=== PATIENT | female | born 1950 | race Caucasian/White ===

== ENCOUNTER → 2018-03-27 13:25 | Outpatient (CLI) | payer MEDICARE ==
[2016-02-01 13:01] VITALS: BMI 34.6
[~2018-03-27 13:25] MED LIST: BROVANA15 MCG/2 M INH; FLUTICASONE PRO16 GM NASAL; IPRAT-ALBUT 0.5-3 ML UPD; MEDROL DOSE PACK4 MG PO; MUCINEX DM ER1 EAC1 PO; NICODERM C1 PATCH .1 TRANSDERM; PAXIL10 MG PO; PAXIL20 MG PO; PROTONIX40 MG PO; PULMICORT0.5 MG/21 UPD; SINGULAIR10 MG PO; TENORMIN25 MG PO
[2018-03-27 15:55] LABS: BASOPHILS 0.3 % (0-2); EOSINOPHILS 0.4 % (0-7); HEMATOCRIT 53.6 % (36.0-48.0); HEMOGLOBIN 17.9 g/dL (12-16); IMMATURE GRANULOCYTES 0.7 % (0-5); MCHC 33.4 g/dL (31.0-37.0); MCV 92.9 fL (80.0-100.0); MEAN PLATELET VOLUME 11.5 fL (7.4-10.4); MONOCYTES 4.9 % (2-11); NEUTROPHILS 81.7 % (40-80); RBC 5.77 10x6/uL (4.00-5.40); RDW 15.8 % (11.5-14.5); WBC 15.2 10x3/uL (4.8-10.8)
[2018-03-27 16:06] LABS: PLATELET COUNT 261 10x3/uL (130-400)
[2018-03-27 17:17] LABS: ERYTHROCYTE SEDIMENTATION RATE 8 mm/hr (0-30)
== END | disposition home or self-care (01) ==
LOC: D.LABREF 13:25
PROVIDERS: Orthopaedic Surgery
DX: M25.562 Pain in left knee (principal)

== ENCOUNTER → 2018-04-08 08:58 | Outpatient (CLI) | payer MEDICARE ==
[2016-02-01 13:01] VITALS: BMI 34.6
== END | disposition home or self-care (01) ==
LOC: D.NM 08:58
DX: M25.562 Pain in left knee (principal)

== ENCOUNTER → 2019-01-22 13:35 | Outpatient (CLI) | payer MEDICARE ==
[2016-02-01 13:01] VITALS: BMI 34.6
== END | disposition home or self-care (01) ==
LOC: D.US 12-17 09:00
PROVIDERS: ATTEND Internal Medicine
DX: N18.3 Chronic kidney disease, stage 3 (moderate) (principal)

== ENCOUNTER 2020-08-01 16:20 | Inpatient (IN) | payer OTHER, MEDICARE ==
[~2020-08-01] VITALS: Ht 160 cm; Wt 78.9 kg
[2020-08-01 16:50] LABS: BASOPHILS 0.2 % (0-2); EOSINOPHILS 2.3 % (0-7); HEMATOCRIT 51.5 % (36.0-48.0); HEMOGLOBIN 16.6 g/dL (12-16); IMMATURE GRANULOCYTES 0.3 % (0-5); MCH 29.2 pg (26.0-34.0); MCHC 32.2 g/dL (31.0-37.0); MCV 90.5 fL (80.0-100.0); MONOCYTES 11.2 % (2-11); PLATELET COUNT 189 10x3/uL (130-400); RBC 5.69 10x6/uL (4.00-5.40); RDW 15.9 % (11.5-14.5); WBC 10.3 10x3/uL (4.8-10.8)
[2020-08-01 17:04] LABS: CALC OSMOLALITY 284 mosm/kg (275-300); CALCIUM 8.9 mg/dL (8.5-10.1); CARBON DIOXIDE 26.5 mmol/L (21.0-32.0); CHLORIDE - SERUM 104 mmol/L (98-107); CREATININE - SERUM 1.5 mg/dL (0.6-1.3); GLUCOSE 93 mg/dL (74-106); POTASSIUM - SERUM 4.2 mmol/L (3.5-5.1); SODIUM 141 mmol/L (136-145); UREA NITROGEN 25 mg/dL (7-18); eGFR NON AFRICAN AMERICAN 36 mL/min (90-120)
[2020-08-01 17:25] LABS: ALBUMIN 2.7 g/dL (3.4-5.0); ALKALINE PHOSPHATASE 100 U/L (30-120); ALT (SGPT) 17 U/L (10-68); AMYLASE - SERUM 134 U/L (25-115); BILIRUBIN - TOTAL 0.79 mg/dL (0.2-1.3); LIPASE 818 U/L (73-393); PROTEIN - SERUM 6.7 g/dL (6.4-8.2)
[2020-08-01 17:26] LABS: TROPONIN-I < 0.017 ng/mL (0.000-0.060)
[2020-08-01 18:33] LABS: BILIRUBIN NEGATIVE (NEGATIVE); KETONE SMALL mg/dL (NEGATIVE); NITRITE POSITIVE (NEGATIVE); UROBILINOGEN NORMAL mg/dL (< 2)
[2020-08-01 18:40] LABS: EPITHELIAL CELLS 0-5 /hpf (0-5); WHITE CELLS - URINE 25-50 HPF (0-4)
[2020-08-01 18:41] LABS: BACTERIA MANY HPF (NONE SEEN)
--- NOTE | 2020-08-01 19:15 | NUR ---
PT ALERT AND TALKING TO FAMILY. DR. ZAMAN IN TO SEE PATIENT.
--- NOTE | 2020-08-01 19:52 | NUR ---
MORPHINE AND ZOFRAN GIVEN FOR PAIN "ALL OVER".
--- NOTE | 2020-08-01 19:52 | NUR ---
COVID SWAB COLLECTED FOR ROUTINE ADMISSION. WALKED TO LAB.
--- NOTE | 2020-08-01 21:10 | NUR ---
PT RESTING. AWAITING ROOM ASSIGNMENT. FEDERICO SUH ELECTRICIAN UNDERGROUND MADE AWARE OF NEED FOR SINGUAIR PO.
[2020-08-02 03:54] VITALS: BP 119/64
[2020-08-02 05:49] LABS: BASOPHILS 0.1 % (0-2); EOSINOPHILS 3.5 % (0-7); HEMATOCRIT 48.7 % (36.0-48.0); HEMOGLOBIN 15.3 g/dL (12-16); IMMATURE GRANULOCYTES 0.3 % (0-5); LYMPHOCYTES 21.7 % (15-50); MCH 28.7 pg (26.0-34.0); MCHC 31.4 g/dL (31.0-37.0); MCV 91.4 fL (80.0-100.0); MEAN PLATELET VOLUME 11.5 fL (7.4-10.4); MONOCYTES 12.5 % (2-11); NEUTROPHILS 61.9 % (40-80); PLATELET COUNT 191 10x3/uL (130-400); RBC 5.33 10x6/uL (4.00-5.40); RDW 16.1 % (11.5-14.5); WBC 8.8 10x3/uL (4.8-10.8)
[2020-08-02 06:09] LABS: ALBUMIN 2.5 g/dL (3.4-5.0); ANION GAP 11.7 mmol/L (8-16); BILIRUBIN - TOTAL 0.65 mg/dL (0.2-1.3); CALCIUM 8.6 mg/dL (8.5-10.1); CARBON DIOXIDE 29.1 mmol/L (21.0-32.0); CREATININE - SERUM 1.3 mg/dL (0.6-1.3); POTASSIUM - SERUM 3.8 mmol/L (3.5-5.1); PROTEIN - SERUM 6.9 g/dL (6.4-8.2)
[2020-08-02 06:18] LABS: APTT 28.7 SECONDS (22.8-39.4); INR 1.18 (0.85-1.17); PROTIME 14.9 SECONDS (11.6-15.0)
[2020-08-02 07:17] VITALS: BP 130/62
[2020-08-02 07:44] VITALS: BP 154/73
[2020-08-02 11:40] VITALS: BP 108/60
[2020-08-02 13:01] VITALS: Ht 160 cm; Wt 78.9 kg
[2020-08-02 17:10] VITALS: BP 142/89
--- NOTE | 2020-08-02 19:30 | NUR ---
RECEIVED BEDSIDE REPORT. PATIENT IS ALERT AND ORIENTED, RESTING COMFORTABLY IN BED. RESPIRATIONS ARE EVEN AND UNLABORED. NO S/S OF DISTRESS. NO C/O PAIN. CALL LIGHT WITHIN REACH. WILL CPOC.
[2020-08-02 22:45] VITALS: BP 155/80
[2020-08-03 02:12] VITALS: BP 131/56
[2020-08-03 06:14] VITALS: BP 126/82
[2020-08-03 06:34] LABS: BASOPHILS 0.3 % (0-2); EOSINOPHILS 4.9 % (0-7); HEMATOCRIT 45.9 % (36.0-48.0); HEMOGLOBIN 14.3 g/dL (12-16); IMMATURE GRANULOCYTES 0.3 % (0-5); LYMPHOCYTES 21.1 % (15-50); MCH 28.7 pg (26.0-34.0); MCHC 31.2 g/dL (31.0-37.0); MEAN PLATELET VOLUME 10.9 fL (7.4-10.4); MONOCYTES 15.3 % (2-11); NEUTROPHILS 58.1 % (40-80); PLATELET COUNT 169 10x3/uL (130-400); RBC 4.99 10x6/uL (4.00-5.40); RDW 15.9 % (11.5-14.5); WBC 6.7 10x3/uL (4.8-10.8)
[2020-08-03 06:52] LABS: ALBUMIN 2.3 g/dL (3.4-5.0); BILIRUBIN - TOTAL 0.58 mg/dL (0.2-1.3); CALCIUM 8.6 mg/dL (8.5-10.1); CARBON DIOXIDE 26.2 mmol/L (21.0-32.0); CHOL - HDL RATIO 3.8 ratio (2.3-4.1); CREATININE - SERUM 1.2 mg/dL (0.6-1.3); LDL-HDL RATIO 1.8 ratio (1.5-3.5); POTASSIUM - SERUM 4.2 mmol/L (3.5-5.1); PROTEIN - SERUM 6.4 g/dL (6.4-8.2)
--- NOTE | 2020-08-03 07:20 | NUR ---
RECIEVE REPORT. ALERT AND ORIENTED X4. IV FLUIDS INFUSING ORDERED. NO SIGNS OF DISTRESS. CONTINUE PLAN OF CARE AND SAFETY PRECAUTIONS.
[2020-08-03 11:00] VITALS: BP 158/76
[2020-08-03 15:00] VITALS: BP 112/46; BP 152/75
--- NOTE | 2020-08-03 15:01 | NUR ---
ALERT AND ORIENTED X4. LT HAND IV INFILTRATED. DC LT HAND IV TIP INTACT. RESITE IV TO RT FA 20g SUCCESSFUL X1 ATTEMPT. CONTINUE FLUIDS AND ZOFRAN ORDERED. DENIES ANY NEEDS. CONTINUE PLAN OF CARE AND SAFETY PRECAUTIONS.
--- NOTE | 2020-08-03 19:11 | NUR ---
RECEIVED BEDSIDE REPORT. ROUNDING COMPLETE. PATIENT IS ALERT AND ORIENTED, RESTING COMFORTABLY IN BED. RESPIRATIONS ARE EVEN AND UNLABORED. NO S/S OF DISTRESS. NO C/O PAIN. CALL LIGHT WITHIN REACH. WILL CPOC.
[2020-08-03 19:58] VITALS: BP 162/78
[2020-08-04] VITALS: BP 132/76
[2020-08-04 04:00] VITALS: BP 161/78
[2020-08-04 06:07] LABS: BASOPHILS 0.3 % (0-2); EOSINOPHILS 4.2 % (0-7); HEMATOCRIT 45.7 % (36.0-48.0); HEMOGLOBIN 14.4 g/dL (12-16); IMMATURE GRANULOCYTES 0.3 % (0-5); LYMPHOCYTES 19.3 % (15-50); MCH 28.6 pg (26.0-34.0); MCHC 31.5 g/dL (31.0-37.0); MCV 90.7 fL (80.0-100.0); MEAN PLATELET VOLUME 10.9 fL (7.4-10.4); MONOCYTES 14.5 % (2-11); NEUTROPHILS 61.4 % (40-80); PLATELET COUNT 172 10x3/uL (130-400); RBC 5.04 10x6/uL (4.00-5.40); RDW 15.5 % (11.5-14.5); WBC 6.4 10x3/uL (4.8-10.8)
[2020-08-04 06:46] LABS: ALBUMIN 2.3 g/dL (3.4-5.0); ANION GAP 15.3 mmol/L (8-16); BILIRUBIN - TOTAL 0.41 mg/dL (0.2-1.3); CALCIUM 8.4 mg/dL (8.5-10.1); CARBON DIOXIDE 23.4 mmol/L (21.0-32.0); POTASSIUM - SERUM 3.7 mmol/L (3.5-5.1); PROTEIN - SERUM 5.9 g/dL (6.4-8.2)
--- NOTE | 2020-08-04 07:33 | NUR ---
RECIEVE REPORT. ALERT AND ORIENTED X4. LAYING IN BED. IV INFUSING ORDERED. DENIES ANY NEEDS. CONTINUE PLAN OF CARE AND SAFETY PRECAUTIONS.
[2020-08-04 10:52] VITALS: BP 148/82
--- NOTE | 2020-08-04 12:37 | NUR ---
Nutrition Follow-up: Pt unavailable at time of visit this AM. Chart reviewed. Noted pt receiving Zofran drip & Phenergan added. Diet: Clear Liquid Wt: 174# (08/02) Labs noted: Glu 66, Ca 8.4, Alb 2.3, Amylase 60, Lipase 274 Meds noted: Florajen, Zofran, Phenergan, Protonix, NS @ 125 -Rec ADAT as medically feasible; if unable to advance past clears within 24-48 hrs, rec consider nutrition support. -Monitor wt. -RD following.
[2020-08-04 14:54] VITALS: BP 149/80
--- NOTE | 2020-08-04 17:05 | NUR ---
ALERT AND ORIENTED X4. RESTING IN BED. DC ZOFRAN DRIP ORDERED. DENIES ANY NEEDS. CONTINUE PLAN OF CARE AND SAFETY PRECAUTIONS.
--- NOTE | 2020-08-04 19:24 | NUR ---
RECEIVED BEDSIDE REPORT. ROUNDING COMPLETE. PATIENT IS ALERT AND ORIENTED, RESTING COMFORTABLY IN BED. RESPIRATIONS ARE EVEN AND UNLABORED. NO S/S OF DISTRESS. NO C/O PAIN. PATIENT INCONTINENT OF BOWEL AND BLADDER. PATIENT CLEANED AND CHANGED. PATIENT REQUESTED BED LARSEN. NEEDS MET. CALL LIGHT WITHIN REACH. WILL CPOC.
[2020-08-04 20:00] VITALS: BP 137/71
[2020-08-05 04:00] VITALS: BP 147/75
[2020-08-05 06:04] LABS: BASOPHILS 0.3 % (0-2); EOSINOPHILS 3.5 % (0-7); HEMATOCRIT 44.5 % (36.0-48.0); HEMOGLOBIN 14.4 g/dL (12-16); IMMATURE GRANULOCYTES 0.2 % (0-5); LYMPHOCYTES 18.2 % (15-50); MCHC 32.4 g/dL (31.0-37.0); MCV 89.5 fL (80.0-100.0); MEAN PLATELET VOLUME 10.8 fL (7.4-10.4); MONOCYTES 15.6 % (2-11); NEUTROPHILS 62.2 % (40-80); PLATELET COUNT 163 10x3/uL (130-400); RBC 4.97 10x6/uL (4.00-5.40); RDW 15.3 % (11.5-14.5); WBC 6.4 10x3/uL (4.8-10.8)
[2020-08-05 06:24] LABS: ALBUMIN 2.3 g/dL (3.4-5.0); ANION GAP 9.7 mmol/L (8-16); BILIRUBIN - TOTAL 0.52 mg/dL (0.2-1.3); CALCIUM 8.5 mg/dL (8.5-10.1); CARBON DIOXIDE 27.5 mmol/L (21.0-32.0); CREATININE - SERUM 0.9 mg/dL (0.6-1.3); POTASSIUM - SERUM 3.2 mmol/L (3.5-5.1); PROTEIN - SERUM 6.4 g/dL (6.4-8.2)
[2020-08-05 08:10] VITALS: BP 144/69
--- NOTE | 2020-08-05 09:23 | MORECARE ---
CASE MANAGEMENT DISCHARGE SUMMARY PATIENT: ROBB CR UNIT: [id number] ADM DATE: 08/01/20 AGE: 70 : 50 SEX: F ROOM/BED: D.2110 AUTHOR: ANGIE MANZO PHYSICIAN: REFERRING PHYSICIAN: GUME ZAMAN MD DATE OF SERVICE: 08/05/20 Discharge Plan Patient Name: ROBB CR Facility: [facility]:[place] : 1950 Planned Disposition: Home Anticipated Discharge Date: Discharge Date: Expected LOS: Initial Reviewer: [email or web address] Initial Review Date: 08/05/2020 Generated: 08/05/20 10:23 am DCPIA - Discharge Planning Initial Assessment Updated by [email or web address]: Lorrie Herrera on 08/05/20 9:19 am * Is the patient Alert and Oriented? Yes * PCP Danisha Parker APN for Dr. Griffiths in [place] * Pharmacy [facility] * Preadmission Environment Home with Family * ADLs Partial Dependent * Partial ADLs (Assistance needed) Ambulation Bathing Dressing Medication Management Toileting Transfers * Equipment Bedside Commode Nebulizer Wheelchair * List name and contact numbers for known caregivers / representatives who currently or will assist patient after discharge: Farhan Aguila - spouse - unknown number Makisha - DTR - [phone] * Verbal permission to speak to the caregivers and representatives has been obtained from the patient. Yes * Community resources currently utilized Private Duty Care * Please name any agencies selected above. [facility] personal care in [place] * Additional services required to return to the preadmission environment? No * Can the patient safely return to the preadmission environment? Yes * Has this patient been hospitalized within the prior 30 days at any hospital? No Patient Name: ROBB CR Page [id number] at 0923 All edits/amendments must be made on the electronic document DICTATION DATE: 08/05/20922 PSYCH THERAPIST: JACKIE 08/05/20922 RPT#: [id number] DC DATE: STATUS: ADM IN [place] [address] [place] [address] END OF REPORT
--- NOTE | 2020-08-05 09:32 | MORECARE ---
CASE MANAGEMENT DISCHARGE SUMMARY PATIENT: ROBB CR UNIT: [id number] ADM DATE: 08/01/20 AGE: 70 : 50 SEX: F ROOM/BED: D.9053 AUTHOR: ANGIE MANZO PHYSICIAN: REFERRING PHYSICIAN: GUME ZAMAN MD DATE OF SERVICE: 08/05/20 Discharge Plan Patient Name: ROBB CR Facility: [facility]:[place] : 1950 Planned Disposition: Home Anticipated Discharge Date: Discharge Date: Expected LOS: Initial Reviewer: [id number] Initial Review Date: 08/05/2020 Generated: 08/05/20 10:31 am Comments DCP- Discharge Planning Updated by [email or web address]: Lorrie Herrera on 08/05/20 8:[address] Patient Name: ROBB CR Admission Status: ER Accout number: [id number] Admission Date: 08-01-2020 : 1950 Admission Diagnosis:URINARY TRACT INFECTION, SITE NOT SPECIFIED Attending: GUME ZAMAN Current LOS: 4 Anticipated DC Date: Planned Disposition: Home Primary Insurance: [employer] DC PLAN: Home with spouse/Daughter to transport home ANTICIPATED DC NEEDS: No needs. She has personal care with [facility] in [place] CM met with patient to complete initial dc planning assessment. CM educated patient on the CM role and verbal consent given by patient to complete assessment. CM verified patient's address, phone number, and emergency contact phone numbers. Patient lives at home with her spouse. At discharge patient plans to return and feels this is a safe discharge. CM discussed availability of home health, rehab services, and medical equipment. Patient denied known discharge needs at this time. Transportation provider at discharge will be her daughter, Neal. States she has personal care from [facility] through [facility] in [place]. Neal is with her Mon - Thurs. for 6 hours a day. She assists with bathing, dressing, medication management. States daughter picks up her medications from pharmacy. States she is wheelchair bound and has just purchased a transfer wheelchair from [employer]. DME company is [email or web address]. CM will continue to follow and will assist as needed with dc plans/needs. Breaking Machine Operator: Lorrie Herrera DCPIA - Discharge Planning Initial Assessment Updated by [email or web address]: Lorrie eHrrera on 08/05/20 9:19 am * Is the patient Alert and Oriented? Yes * PCP Danisha Parker APN for Dr. Griffiths in [place] * [facility]acy [facility] [address] * Preadmission Environment Home with Family * ADLs Partial Dependent * Partial ADLs (Assistance needed) Ambulation Bathing Dressing Medication Management Toileting Transfers * Equipment Bedside Commode Nebulizer Wheelchair * List name and contact numbers for known caregivers / representatives who currently or will assist patient after discharge: Farhan Aguila - spouse - unknown number Makisha - DTR - [phone] * Verbal permission to speak to the caregivers and representatives has been obtained from the patient. Yes * Community resources currently utilized Private Duty Care * Please name any agencies selected above. [facility] personal care in [place] * Additional services required to return to the preadmission environment? No * Can the patient safely return to the preadmission environment? Yes * Has this patient been hospitalized within the prior 30 days at any hospital? No Coverage Notice Reviewer: [id number] - Lorrie Herrera Notice Issued Date-Time: 08/05/2020 9:26 Notice Type: IM Discharge Notice Notice Delivered To: Patient Relationship to Patient: Self Senior Office Assistant Name: Delivery Method: HAND - Hand Delivered Eboni Days: Prior Verbal Notification: Recipient Understood Notice: Yes Recipient Signature: Yes Med Rec Note Co-signed by Attending: Coverage Notice Comment: IMM explained, signed, given, copy placed in MR Last DP export: 08/05/20 8:23 a Patient Name: ROBB CR Page 22600 at 0932 All edits/amendments must be made on the electronic document DICTATION DATE: 08/05/20931 ASPHALT DAUBER: JACKIE 08/05/20931 RPT#: [id number] DC DATE: STATUS: ADM IN [facility] [address] [place] [address] END OF REPORT
[2020-08-05 11:44] VITALS: BP 112/62; BP 144/69
[2020-08-05 15:58] VITALS: BP 131/65
[2020-08-05 20:21] VITALS: BP 139/64
[2020-08-06] VITALS: BP 133/57
[2020-08-06 05:44] LABS: BASOPHILS 0.4 % (0-2); HEMATOCRIT 45.3 % (36.0-48.0); HEMOGLOBIN 14.4 g/dL (12-16); IMMATURE GRANULOCYTES 0.2 % (0-5); LYMPHOCYTES 26.6 % (15-50); MCH 28.6 pg (26.0-34.0); MCHC 31.8 g/dL (31.0-37.0); MCV 90.1 fL (80.0-100.0); MEAN PLATELET VOLUME 10.7 fL (7.4-10.4); MONOCYTES 15.7 % (2-11); NEUTROPHILS 52.1 % (40-80); PLATELET COUNT 173 10x3/uL (130-400); RBC 5.03 10x6/uL (4.00-5.40); RDW 15.3 % (11.5-14.5); WBC 5.2 10x3/uL (4.8-10.8)
[2020-08-06 06:10] LABS: ALBUMIN 2.3 g/dL (3.4-5.0); ANION GAP 10.9 mmol/L (8-16); BILIRUBIN - TOTAL 0.37 mg/dL (0.2-1.3); CALCIUM 8.3 mg/dL (8.5-10.1); CARBON DIOXIDE 29.3 mmol/L (21.0-32.0); POTASSIUM - SERUM 3.2 mmol/L (3.5-5.1); PROTEIN - SERUM 5.6 g/dL (6.4-8.2)
[2020-08-06 09:52] VITALS: BP 140/74
--- NOTE | 2020-08-06 13:27 | NUR ---
Nutrition Follow-up: NPO for GES today. Noted pt with N/V/abd pain. Ate 50-75% of meals yesterday per chart. Wt: 174# (08/02) Last BM: 08/05 per chart Labs noted: K+ 3.2, Ca 8.3, Alb 2.3 Meds noted: Zofran, Florajen, Protonix, NS @ 125 -RD following.
[2020-08-06 14:28] VITALS: BP 149/76
[2020-08-06 15:12] LABS: IGG SUBCLASS 1 352 mg/dL (248-810); IGG SUBCLASS 2 215 mg/dL (130-555); IGG SUBCLASS 3 27 mg/dL (15-102); IGG SUBCLASS 4 61 mg/dL (2-96); IGGS - IGG SERUM 679 mg/dL (586-1602)
--- NOTE | 2020-08-06 18:06 | NUR ---
22 GAUGE RIGHT HAND 1 STICK
[2020-08-06 21:41] VITALS: BP 127/58
[2020-08-07 04:40] VITALS: BP 141/54
--- NOTE | 2020-08-07 07:35 | NUR ---
PT RESTING COMFORTABLY, EYES CLOSED. BREATHS EVEN/REGULAR AND UNLABORED. NO SIGNS OR SYMPTOMS OF ACUTE DISTRESS NOTED AT THIS TIME. WILL CNT. TO MONITOR . CL IN REACH, SRX2.
[2020-08-07 08:00] VITALS: BP 136/66
[2020-08-07 10:30] VITALS: BP 140/74
[2020-08-07 15:00] VITALS: BP 132/70
--- NOTE | 2020-08-07 15:56 | NUR ---
I have reviewed this patient and I concur with the Shift Assessment completed by the Licensed Practical Nurse today this shift.
[2020-08-07 21:42] VITALS: BP 137/63
[2020-08-08 01:49] VITALS: BP 156/81
[2020-08-08 05:39] VITALS: BP 169/73
[2020-08-08 08:18] VITALS: BP 149/70
--- NOTE | 2020-08-08 10:39 | NUR ---
PT ALERT AND ORIENTED, LYING INBED. AT BEDSIDE. PT REQUESTING TO GET HER DISCHARGE PAPERS ROSA M SO SHE CAN HAVE A RIDE HOME. WILL INFORM MD. CHANGED PT, SHE IS CURRENTLY CLEAN AND DRY. WILL CNT. TO [place]. CL INR EACH, SRX2.
[2020-08-08] MEDS ORDERED: REGLAN10 MG PO (12:58)
--- NOTE | 2020-08-08 13:15 | MORECARE ---
CASE MANAGEMENT DISCHARGE SUMMARY PATIENT: ROBB CR UNIT: [id number] ADM DATE: 08/01/20 AGE: 70 : 50 SEX: F ROOM/BED: D.9809 AUTHOR: ANGIE MANZO PHYSICIAN: REFERRING PHYSICIAN: GUME ZAMAN MD DATE OF SERVICE: 08/08/20 Discharge Plan Patient Name: ROBB CR Facility: [facility]:[place] : 1950 Planned Disposition: Home Anticipated Discharge Date: Discharge Date: Expected LOS: Initial Reviewer: [email or web address] Initial Review Date: 08/05/2020 Generated: 08/08/20 2:15 pm DCP- Discharge Planning Updated by [email or web address]: Lorrie Herrera on 08/05/20 8:[address] Patient Name: ROBB CR Admission Status: ER Accout number: [id number] Admission Date: 08-01-2020 : 1950 Admission Diagnosis:URINARY TRACT INFECTION, SITE NOT SPECIFIED Attending: GUME ZAMAN Current LOS: 4 Anticipated DC Date: Planned Disposition: Home Primary Insurance: [employer] DC PLAN: Home with spouse/Daughter to transport home ANTICIPATED DC NEEDS: No needs. She has personal care with [facility] in [place] CM met with patient to complete initial dc planning assessment. CM educated patient on the CM role and verbal consent given by patient to complete assessment. CM verified patient's address, phone number, and emergency contact phone numbers. Patient lives at home with her spouse. At discharge patient plans to return and feels this is a safe discharge. CM discussed availability of home health, rehab services, and medical equipment. Patient denied known discharge needs at this time. Transportation provider at discharge will be her daughter, Neal. States she has personal care from [facility] through [facility] in [place]. Neal is with her Mon - . for 6 hours a day. She assists with bathing, dressing, medication management. States daughter picks up her medications from pharmacy. States she is wheelchair bound and has just purchased a transfer wheelchair from [employer]. DME company is [employer]. CM will continue to follow and will assist as needed with dc plans/needs. Pcb Design Engineer: Lorrie Herrera DCPIA - Discharge Planning Initial Assessment Updated by [id number]: Lorrie Herrera on 08/05/20 9:19 am * Is the patient Alert and Oriented? Yes * PCP Danisha Parker APN for Dr. Griffiths in [place] * [facility] [address] * Preadmission Environment Home with Family * ADLs Partial Dependent * Partial ADLs (Assistance needed) Ambulation Bathing Dressing Medication Management Toileting Transfers * Equipment Bedside Commode Nebulizer Wheelchair * List name and contact numbers for known caregivers / representatives who currently or will assist patient after discharge: Farhan Aguila - spouse - unknown number Makisha - DTR - [phone] * Verbal permission to speak to the caregivers and representatives has been obtained from the patient. Yes * Community resources currently utilized Private Duty Care * Please name any agencies selected above. [facility] care in [place] * Additional services required to return to the preadmission environment? No * Can the patient safely return to the preadmission environment? Yes * Has this patient been hospitalized within the prior 30 days at any hospital? No External Providers External Provider: OTHER-OTHER Next Contact Date: Service Request Date: Service Type: Resolution: Reviewer: Comments: Coverage Notice Reviewer: [id number] - Lorrie Herrera Notice Issued Date-Time: 08/05/2020 9:26 Notice Type: IM Discharge Notice Notice Delivered To: Patient Relationship to Patient: Self College Or University Business Manager Name: Delivery Method: HAND - Hand Delivered Eboni Days: Prior Verbal Notification: Recipient Understood Notice: Yes Recipient Signature: Yes Med Rec Note Co-signed by Attending: Coverage Notice Comment: IMM explained, signed, given, copy placed in MR Reviewer: [id number] - Alonso Feng Notice Issued Date-Time: 08/08/2020 12:22 Notice Type: IM Discharge Notice Notice Delivered To: Patient Relationship to Patient: Self College Or University Business Manager Name: Delivery Method: HAND - Hand Delivered Eboni Days: Prior Verbal Notification: Recipient Understood Notice: Yes Recipient Signature: Yes Med Rec Note Co-signed by Attending: Coverage Notice Comment: DC IMM delivered, explained, signed by the patient, and placed in chart. Signed form also left with the patient. Last DP export: 08/05/20 8:32 a Patient Name: ROBB CR Page [id number] at 1315 All edits/amendments must be made on the electronic document DICTATION DATE: 08/08/201314 BRAND MANAGER: JACKIE 08/08/201314 RPT#: [id number] DC DATE: STATUS: ADM IN [facility] [address] [place] [address] END OF REPORT
--- NOTE | 2020-08-08 13:16 | NUR ---
PT ESCORTED OUT VIA WHEELCHIAR TO POV, DRIVING. GOT SELF INTO TRUCK. CL IN REACH, SRX2.
--- NOTE | 2020-08-08 13:23 | MORECARE ---
CASE MANAGEMENT DISCHARGE SUMMARY PATIENT: ROBB CR UNIT: [id number] ADM DATE: 08/01/20 AGE: 70 : 50 SEX: F ROOM/BED: D.6340 AUTHOR: ANGIE MANZO PHYSICIAN: REFERRING PHYSICIAN: GUME ZAMAN MD DATE OF SERVICE: 08/08/20 Discharge Plan Patient Name: ROBB CR Facility: [facility]:[place] : 1950 Planned Disposition: Home with Home Health Anticipated Discharge Date: Discharge Date: 08/08/2020 Expected LOS: Initial Reviewer: [email or web address] Initial Review Date: 08/05/2020 Generated: 08/08/20 2:23 pm Comments DCP- Discharge Planning Updated by [email or web address]: Alonso Feng on 08/08/20 12:[address] Patient Name: ROBB CR Encounter No: [id number] : 1950 Primary Insurance: [employer] Anticipated DC Date: Planned Disposition: Home External Planned Provider: : DCP follow-up note: Spoke with patient to assess further DC needs and plan. Patient states that she is currently with [facility] and would like to continue with them. Will confirm current status with [facility]. Spoke with Rose at [facility]. Rose states that patient was seen in the past. Will initiate referral and notify patient. Patient states she is satisfied with DC plan. DC IMM delivered, explained, signed by the patient, and placed in chart. Signed form also left with the patient. Spoke with patient about [facility] and Rose's statement of long ago care. Patient clarified agency as [facility] not [facility]. Clinicals for [facility] faxed to [phone]. CM will continue to follow and will assist as needed with dc plans/needs. Alonso Feng DCP- Discharge Planning Updated by [id number]: Lorrie Herrera on 08/05/20 8:[address] Patient Name: ROBB CR Admission Status: ER Accout number: [id number] Admission Date: 08-01-2020 : 1950 Admission Diagnosis:URINARY TRACT INFECTION, SITE NOT SPECIFIED Attending: GUME ZAMAN Current LOS: 4 Anticipated DC Date: Planned Disposition: Home [facility] DC PLAN: Home with spouse/Daughter to transport home ANTICIPATED DC NEEDS: No needs. She has personal care with [facility] in [place] CM met with patient to complete initial dc planning assessment. CM educated patient on the CM role and verbal consent given by patient to complete assessment. CM verified patient's address, phone number, and emergency contact phone numbers. Patient lives at home with her spouse. At discharge patient plans to return and feels this is a safe discharge. CM discussed availability of home health, rehab services, and medical equipment. Patient denied known discharge needs at this time. Transportation provider at discharge will be her daughter, Neal. States she has personal care from [facility] through [facility] in [place]. Neal is with her Mon - . for 6 hours a day. She assists with bathing, dressing, medication management. States daughter picks up her medications from pharmacy. States she is wheelchair bound and has just purchased a transfer wheelchair from [employer] DME company is [employer]. CM will continue to follow and will assist as needed with dc plans/needs. People Greeter: Lorrie Herrera DCPIA - Discharge Planning Initial Assessment Updated by [id number]: Lorrie Herrera on 08/05/20 9:19 am * Is the patient Alert and Oriented? Yes * PCP Danisha Parker APN for Dr. Griffiths in [place] * Pharmacy [facility] on [address] * Preadmission Environment Home with Family * ADLs Partial Dependent * Partial ADLs (Assistance needed) Ambulation Bathing Dressing Medication Management Toileting Transfers * Equipment Bedside Commode Nebulizer Wheelchair * List name and contact numbers for known caregivers / representatives who currently or will assist patient after discharge: Farhan Aguila - spouse - unknown number Neal - DTR - [phone] * Verbal permission to speak to the caregivers and representatives has been obtained from the patient. Yes * Community resources currently utilized Private Duty Care * Please name any agencies selected above. [facility] personal care in [place] * Additional services required to return to the preadmission environment? No * Can the patient safely return to the preadmission environment? Yes * Has this patient been hospitalized within the prior 30 days at any hospital? No Coverage Notice Reviewer: [id number] - Lorrie Herrera Notice Issued Date-Time: 08/05/2020 9:26 Notice Type: IM Discharge Notice Notice Delivered To: Patient Relationship to Patient: Self Supervisor Assembly Department Name: Delivery Method: HAND - Hand Delivered Eboni Days: Prior Verbal Notification: Recipient Understood Notice: Yes Recipient Signature: Yes Med Rec Note Co-signed by Attending: Coverage Notice Comment: IMM explained, signed, given, copy placed in MR Reviewer: [id number] Sulma Feng Notice Issued Date-Time: 08/08/2020 12:22 Notice Type: IM Discharge Notice Notice Delivered To: Patient Relationship to Patient: Self Supervisor Assembly Department Name: Delivery Method: HAND - Hand Delivered Eboni Days: Prior Verbal Notification: Recipient Understood Notice: Yes Recipient Signature: Yes Med Rec Note Co-signed by Attending: Coverage Notice Comment: DC IMM delivered, explained, signed by the patient, and placed in chart. Signed form also left with the patient. Last DP export: 08/08/20 12:15 p Patient Name: ROBB CR Page [phone] at 1323 All edits/amendments must be made on the electronic document DICTATION DATE: 08/08/20 1323 ELECTRONIC ASSEMBLER: JACKIE 08/08/20 1323 RPT#: [id number] DC DATE:08/08/20 STATUS: DIS IN [facility] [address] [place] [address] END OF REPORT
--- NOTE | 2020-08-09 09:24 | MORECARE ---
CASE MANAGEMENT DISCHARGE SUMMARY PATIENT: ROBB CR UNIT: [id number] ADM DATE: 08/01/20 AGE: 70 : 50 SEX: F ROOM/BED: D.7600 AUTHOR: ANGIE MANZO PHYSICIAN: REFERRING PHYSICIAN: GUME ZAMAN MD DATE OF SERVICE: 08/09/20 Discharge Plan Patient Name: ROBB CR Facility: [facility]:[place] : 1950 Planned Disposition: Home with Home Health Anticipated Discharge Date: Discharge Date: 08/08/2020 Expected LOS: Initial Reviewer: [email or web address] Initial Review Date: 08/05/2020 Generated: 08/09/20 10:23 am Comments DCP- Discharge Planning Updated by [email or web address]: Alonso Fegn on 08/08/20 12:[address] Patient Name: ROBB CR Encounter No: [id number] : 1950 Primary Insurance: [employer] Anticipated DC Date: Planned Disposition: Home External Planned Provider: : DCP follow-up note: Spoke with patient to assess further DC needs and plan. Patient states that she is currently with [facility] and would like to continue with them. Will confirm current status with [facility]. Spoke with Rose at [facility]. Rose states that patient was seen in the past. Will initiate referral and notify patient. Patient states she is satisfied with DC plan. DC IMM delivered, explained, signed by the patient, and placed in chart. Signed form also left with the patient. Spoke with patient about [facility] and Rose's statement of long ago care. Patient clarified agency as [facility] not [facility]. Clinicals for [facility] faxed to [phone]. CM will continue to follow and will assist as needed with dc plans/needs. Alonso Feng DCP- Discharge Planning Updated by [email or web address]: Lorrie Herrera on 08/05/20 8:[address] Patient Name: ROBB CR Admission Status: ER Accout number: [id number] Admission Date: 08-01-2020 : 1950 Admission Diagnosis:URINARY TRACT INFECTION, SITE NOT SPECIFIED Attending: GUME ZAMAN Current LOS: 4 Anticipated DC Date: Planned Disposition: Home [facility] DC PLAN: Home with spouse/Daughter to transport home ANTICIPATED DC NEEDS: No needs. She has personal care with [facility] in [place] CM met with patient to complete initial dc planning assessment. CM educated patient on the CM role and verbal consent given by patient to complete assessment. CM verified patient's address, phone number, and emergency contact phone numbers. Patient lives at home with her spouse. At discharge patient plans to return and feels this is a safe discharge. CM discussed availability of home health, rehab services, and medical equipment. Patient denied known discharge needs at this time. Transportation provider at discharge will be her daughter, Neal. States she has personal care from [facility] through [facility] in [place]. Neal is with her Mon - . for 6 hours a day. She assists with bathing, dressing, medication management. States daughter picks up her medications from pharmacy. States she is wheelchair bound and has just purchased a transfer wheelchair from [employer]. DME company is [employer]. CM will continue to follow and will assist as needed with dc plans/needs. Zipper Trimmer Hand: Lorrie Herrera DCPIA - Discharge Planning Initial Assessment Updated by [email or web address]: Lorrie Herrera on 08/05/20 9:19 am * Is the patient Alert and Oriented? Yes * PCP Danisha Parker APN for Dr. Griffiths in [place] * Pharmacy [facility] on [address] * Preadmission Environment Home with Family * ADLs Partial Dependent * Partial ADLs (Assistance needed) Ambulation Bathing Dressing Medication Management Toileting Transfers * Equipment Bedside Commode Nebulizer Wheelchair * List name and contact numbers for known caregivers / representatives who currently or will assist patient after discharge: Farhan Aguila - spouse - unknown number Neal - DTR - [phone] * Verbal permission to speak to the caregivers and representatives has been obtained from the patient. Yes * Community resources currently utilized Private Duty Care * Please name any agencies selected above. [facility] personal care in [place] * Additional services required to return to the preadmission environment? No * Can the patient safely return to the preadmission environment? Yes * Has this patient been hospitalized within the prior 30 days at any hospital? No Coverage Notice Reviewer: [id number] - Lorrie Herrera Notice Issued Date-Time: 08/05/2020 9:26 Notice Type: IM Discharge Notice Notice Delivered To: Patient Relationship to Patient: Self Yard Hostler Name: Delivery Method: HAND - Hand Delivered Eboni Days: Prior Verbal Notification: Recipient Understood Notice: Yes Recipient Signature: Yes Med Rec Note Co-signed by Attending: Coverage Notice Comment: IMM explained, signed, given, copy placed in MR Reviewer: [id number] Feng Notice Issued Date-Time: 08/08/2020 12:20 Notice Type: IM Discharge Notice Notice Delivered To: Patient Relationship to Patient: Self Yard Hostler Name: Delivery Method: HAND - Hand Delivered Eboni Days: Prior Verbal Notification: Recipient Understood Notice: Yes Recipient Signature: Yes Med Rec Note Co-signed by Attending: Coverage Notice Comment: DC IMM delivered, explained, signed by the patient, and placed in chart. Signed form also left with the patient. Reviewer: [id number] Sulma Feng Notice Issued Date-Time: 08/08/2020 13:01 Notice Type: Patient Choice Letter Notice Delivered To: Patient Relationship to Patient: Self Yard Hostler Name: Delivery Method: HAND - Hand Delivered Eboni Days: Prior Verbal Notification: Recipient Understood Notice: Yes Recipient Signature: Yes Med Rec Note Co-signed by Attending: Coverage Notice Comment: [employer] Last DP export: 08/08/20 12:24 p Patient Name: ROBB CR Page [id number] at 0924 All edits/amendments must be made on the electronic document DICTATION DATE: 08/09/20922 DYE JIG OPERATOR: JACKIE 08/09/20922 RPT#: [id number] DC DATE:08/08/20 STATUS: DIS IN [facility] [address] [place] [address] END OF REPORT
== END 2020-08-08 13:16 | disposition home health service (06) | DRG 689 ==
LOC: D.ER 16:20 → D.M2 21:44
PROVIDERS: Family Medicine; Internal Medicine Gastroenterology; ADMIT Family Medicine; ATTEND Family Medicine
DX: N39.0 Urinary tract infection, site not specified (principal); K85.90 Acute pancreatitis without necrosis or infection, unspecified; I50.9 Heart failure, unspecified; J44.9 Chronic obstructive pulmonary disease, unspecified; I25.10 Atherosclerotic heart disease of native coronary artery without angina pectoris; K21.9 Gastro-esophageal reflux disease without esophagitis; K31.84 Gastroparesis; Z72.0 Tobacco use